=== PATIENT | male | born 1960 | race Caucasian/White ===

== ENCOUNTER → 2019-06-03 | Outpatient (CLI) | payer BC ==
[~2019-06-03] MED LIST: METOPROLOL SUCC25 MG PO; NO HOME MEDICATIONS
--- NOTE | 2019-06-03 08:15 | NUR ---
Patient rescheduled today due to patient taking Singulair prior to appointment. Jackson Hunt, SENIOR UNDERWRITING ASSISTANT
== END ==
LOC: COL.PUL 07:36
DX: R05 Cough (principal)

== ENCOUNTER → 2019-06-08 | Outpatient (CLI) | payer BC | LOC: COL.PUL 07:50 | DX: R05 Cough (principal) ==

== ENCOUNTER 2019-06-15 08:49 | Emergency (ER) | payer BC ==
[~2019-06-15] VITALS: Ht 167.6 cm; Wt 131.8 kg
[2019-06-15 08:50] VITALS: TEMP 97.2
[2019-06-15 09:18] LABS: BASO # 0.1 (0.0-0.2); BASO % 0.7 % (0.0-2.0); EOS # 0.5 (0.0-0.7); EOS % 4.5 % (0-4.0); GRAN # 5.8 (1.4-6.5); GRAN % 56.4 % (42.2-75.2); HEMATOCRIT 45.6 % (42.0-52.0); HEMOGLOBIN 14.8 g/dl (13.5-18.0); LYMPH % 28.7 % (20.0-51.0); MEAN CELL VOLUME 95 fl (80.0-100.0); MEAN CORPUSCULAR HEMOGLOBIN 31 pg (27.0-31.0); MEAN CORPUSCULAR HGB CONC 33 g/dl (33.0-37.0); MONO # 0.9 (0.1-0.6); MONO % 8.8 % (1.7-9.3); PLATELET COUNT 284 K/mm3 (130-400); RED BLOOD COUNT 4.82 M/mm3 (4.20-5.60); REDCELL DISTRIBUTION WIDTH-CV 14.1 % (11.5-14.5)
[2019-06-15 09:24] LABS: INR 0.9 (0.8-3.0); PROTHROMBIN TIME 10.9 SECONDS (9.7-12.8)
[2019-06-15 10:13] LABS: ALANINE AMINOTRANSFERASE 45 U/L (4-49); ALBUMIN 3.7 gm/dL (3.5-5.0); ALKALINE PHOSPHATASE 56 U/L (50-136); ANION GAP 10 mmol/L (7-16); AST,SGOT 32 U/L (15-37); BILIRUBIN,TOTAL 0.7 mg/dL (0.0-1.0); BLOOD UREA NITROGEN 17 mg/dL (9-20); CALCIUM 8.9 mg/dL (8.4-10.2); CARBON DIOXIDE 25 mmol/L (22-30); CHLORIDE 102 mmol/L (98-107); CREATININE, serum 1.11 (0.66-1.25); GLUCOSE 99 mg/dL (74-106); LIPASE 55 U/L (23-300); POTASSIUM 4.3 mmol/L (3.4-5.0); SODIUM 137 mmol/L (137-145); TOTAL PROTEIN 6.4 gm/dL (6.4-8.2)
[2019-06-15 10:17] VITALS: BP 104/60; PULSE 55
[2019-06-15 10:26] LABS: TROPONIN-I < 0.012 ng/mL (0.000-0.035)
== END 2019-06-15 10:15 | disposition short-term general hospital (02) ==
LOC: COL.ER 08:49
PROVIDERS: Emergency Medicine
DX: I71.01 Dissection of thoracic aorta (principal); E66.9 Obesity, unspecified
CPT/HCPCS: J3010; J7030; Q9967